=== PATIENT | male | born 1960 | race Caucasian/White ===

== ENCOUNTER 2017-05-10 06:39 | Emergency (ER) | payer OTHER ==
--- NOTE | 2017-05-10 07:11 | ED GENERAL ADULT ---
History of Present Illness General Chief Complaint: Low Back Pain/Injury Stated Complaint: LOW BACK PAIN Source: patient Exam Limitations: no limitations Vital Signs & Intake/Output Vital Signs & Intake/Output Vital Signs Date Time Temp Pulse Resp B/P B/P Pulse O2 O2 Flow FiO2 Mean Ox Delivery Rate 05/10 1804 97.1 77 19 132/71 96 Room Air 05/10 1406 97.0 75 20 135/66 95 Room Air 05/10 1307 97.2 78 18 128/77 95 Room Air 05/10 1203 99.0 75 14 122/88 94 Room Air 05/10 1105 97.2 70 16 132/68 98 Room Air 05/10 0819 97.2 74 20 118/66 96 Room Air 05/10 0650 96.9 78 18 102/52 98 Room Air Allergies Coded Allergies: NO KNOWN ALLERGIES (09/17/11) Reconcile Medications Cyclobenzaprine HCl 10 MG TABLET 1 TAB PO BID PRN PAIN Fluoxetine HCl 20 MG CAPSULE 1 CAP PO DAILY MENTAL HEALTH (Reported) Meloxicam (Mobic) 15 MG TABLET 1 TAB PO DAILY PRN PAIN Pravastatin Sodium 40 MG TABLET 1 TAB PO DAILY CHOLESTEROL (Reported) Triage Note: PT BIBA FROM HOME. PT STATES HE WAS FIXING A TOILET YESTERDAY AND BEGAN TO HAVE MILD LOW BACK PAIN. PT STATES UPON WAKING THIS AM HE WAS UNABLE TO STAND UP D/T HIS LOW BACK PAIN 01/07. Triage Nurses Notes Reviewed? yes Onset: Abrupt Duration: day(s): Timing: recent history HPI: 05/10/17 56-year-old man presents to the emergency department for low back pain. The patient was lifting some objects at work on Sunday, and developed low back pain aproximally 48 hours ago. He denies fever, abdominal pain, dysuria, urinary incontinence, bowel or bladder dysfunction. Past History Travel History Traveled to [place] past 21 day No Medical History Any Pertinent Medical History? see below for history Neurological: NONE EENT: NONE Cardiovascular: hyperlipidemia Respiratory: NONE Gastrointestinal: NONE Hepatic: NONE Renal: NONE Musculoskeletal: NONE Psychiatric: depression Endocrine: NONE Blood Disorders: NONE Cancer(s): NONE ALARM TECHNICIAN/Reproductive: NONE Tetanus Vaccine: 09/17/11 Surgical History Surgical History: non-contributory Psychosocial History What is your primary language Faroese Tobacco Use: Never used ETOH Use: occasional use Family History Hx Contributory? No Review of Systems Review of Systems Constitutional: Denies: fever. EENTM: Denies: visual changes. Respiratory: Denies: short of breath. Cardiovascular: Denies: chest pain. GI: Denies: abdominal pain. Genitourinary: Denies: discharge, dysuria. Musculoskeletal: Reports: back pain. Skin: Denies: rash. Neurological/Psychological: Denies: anxiety. Hematologic/Endocrine: Denies: bruising, bleeding. Immunologic/Allergic: Reports: no symptoms. Physical Exam Physical Exam General Appearance: well developed/nourished, alert, awake, anxious, mild distress Head: atraumatic, normal appearance Eyes: Bilateral: normal appearance, PERRL, EOMI. Ears, Nose, Throat: normal pharynx, normal ENT inspection Neck: normal inspection, supple, full range of motion Respiratory: normal breath sounds, chest non-tender, no respiratory distress Cardiovascular: regular rate/rhythm Peripheral Pulses: 4+ radial (R), 4+ radial (L) Gastrointestinal: soft, non-tender Back: normal inspection Extremities: normal inspection, normal range of motion Neurologic/Psych: no motor/sensory deficits, awake, alert, oriented x 3 Skin: intact, normal color, warm/dry Core Measures ACS in differential dx? No CVA/TIA Diagnosis: No Sepsis Present: No Sepsis Focused Exam Completed? No Progress Differential Diagnoses I considered the following diagnoses in my evaluation of the patient: Renal colic, lumbar strain, disc herniation, epidural abscess, transverse myelitis, cauda equina syndrome] Plan of Care: Orders Procedure Date/time Status BASIC METABOLIC PANEL 05/10 1748 Complete URINALYSIS 05/10 0737 Active Laboratory Tests 05/10/17 1753: Anion Gap 14, Estimated GFR > 60, BUN/Creatinine Ratio 22.2, Glucose 94, Calcium 9.2 Initial ED EKG: none Departure Departure Disposition: HOME OR SELF CARE Condition: Stable Clinical Impression Primary Impression: Back pain Referrals: Torie KENDRICK,Mayra Kaplan (PCP/Family) Departure Forms: Customer Survey General Discharge Information Prescriptions: Current Visit Scripts Meloxicam (Mobic) 1 TAB PO DAILY PRN PAIN #10 TAB Cyclobenzaprine HCl 1 TAB PO BID PRN PAIN #20 TAB Comments Plain film x-rays were unremarkable The patient had ongoing pain and was given Toradol and Flexeril. He had some improvement however he required IM Dilaudid His pain essentially resolved. He had difficulty providing a urine sample. He did admit to taking cold medications earlier, and was given the Dilaudid in the ED. CT scan was done which was negative as shown below. He was ambulating without difficulty. BMP showed normal renal function. He was told to take Flexeril as needed and follow-up with his doctor this week. PATIENT: CHENCHO LYNCH PRESENT AGE: 56 PATIENT ACCOUNT NO: [id number] : 62 LOCATION: [facility] ORDERING PHYSICIAN: Alvaro Acuna DO SERVICE DATE: 05/10/171874 EXAM TYPE: CAT - CT ABD & PELVIS W/O IV CONTRAS EXAMINATION: CT ABDOMEN AND PELVIS WITHOUT CONTRAST CLINICAL INFORMATION: Back pain. Rule out urolithiasis. COMPARISON: Lumbar spine dated 05/10/2017. TECHNIQUE: Multidetector volumetric imaging was performed from the superior aspect of the liver through the pubic symphysis. Sagittal and coronal reformatted images were obtained on the technologist workstation. DLP: 370.56 mGy-cm. FINDINGS: LUNG BASES: Mild dependent atelectatic changes as seen in both lower lobes. LIVER, GALLBLADDER, AND BILIARY TREE: The liver is normal in size, shape, and attenuation. No focal hepatic lesion on noncontrast imaging. No biliary ductal dilatation is present. The gallbladder is unremarkable with no evidence of radiopaque gallstones, gallbladder wall thickening, or obvious pericholecystic inflammatory changes. PANCREAS: Mild fatty infiltration of the pancreas is seen, most prominently affecting the pancreatic head. Pancreas otherwise unremarkable on noncontrast imaging. SPLEEN, ADRENAL GLANDS: Unremarkable on noncontrast imaging. KIDNEYS AND URETERS: The kidneys are normal in size, shape, and attenuation. No hydronephrosis, hydroureter, or calculi seen. No perinephric stranding. BLADDER: Unremarkable. PELVIC VISCERA: Unremarkable. GASTROINTESTINAL TRACT: The small and large bowel are unremarkable. The appendix is unremarkable. ABDOMINAL WALL: There is a small fat-containing umbilical hernia. LYMPH NODES, VASCULAR: No abdominal or pelvic adenopathy. Moderate atherosclerotic aortic calcifications. Aorta normal in caliber. OSSEOUS STRUCTURES: Minimal S-shaped thoracolumbar scoliosis is seen. IMPRESSION: 1. No acute intra-abdominal or pelvic process seen. Specifically, no evidence of nephrolithiasis or obstructive uropathy. 2. Mild fatty infiltration of the pancreas. 3. Small fat-containing umbilical hernia. DICTATED BY: Trice Cat MD DATE/TIME DICTATED:05/10/171602 CLEARING DISTRIBUTION CLERK:MELISA DATE/TIME TRANSCRIBED:05/10/171602 CONFIDENTIAL, DO NOT COPY WITHOUT APPROPRIATE AUTHORIZATION. <Electronically signed in Other Vendor System> SIGNED BY: Trice Cat MD. [id number] 05/10/17 Patient's pain is dramatically improved. He was sleepy from the Dilaudid. He is only voided small amounts. But CT scan was negative for evidence of hydronephrosis or ureterolithiasis. A BMP was sent. He is being discharged with Flexeril and will take ibuprofen as needed for pain [phone] Critical Care Note Critical Care Note Critical Care Time: non-applicable
[2017-05-10] MEDS ORDERED: FLUOXETINE HCL20 M2 PO (07:58)
[2017-05-10] MEDS ORDERED: PRAVASTATIN SOD40 M2 PO (07:59)
--- NOTE | 2017-05-10 08:40 | RADIOLOGY REPORT ---
EXAMINATION: XR LUMBOSACRAL SPINE CLINICAL INFORMATION: Back pain. COMPARISON: None TECHNIQUE: 3 views of the lumbosacral spine. FINDINGS: Minimal left convex curvature of the lumbar spine. Vertebral body height is maintained. Mild disc space narrowing at L3-L4. Small endplate osteophytes are visualized at T12-L1, L2-L3 and L3-L4 levels. Sacroiliac joints are unremarkable. No additional findings. IMPRESSION: Mild degenerative changes as above with mild disc space narrowing at L3-L4.
--- NOTE | 2017-05-10 16:15 | CT SCAN REPORT ---
EXAMINATION: CT ABDOMEN AND PELVIS WITHOUT CONTRAST CLINICAL INFORMATION: Back pain. Rule out urolithiasis. COMPARISON: Lumbar spine dated 05/10/2017. TECHNIQUE: Multidetector volumetric imaging was performed from the superior aspect of the liver through the pubic symphysis. Sagittal and coronal reformatted images were obtained on the technologist workstation. DLP: 370.56 mGy-cm. FINDINGS: LUNG BASES: Mild dependent atelectatic changes as seen in both lower lobes. LIVER, GALLBLADDER, AND BILIARY TREE: The liver is normal in size, shape, and attenuation. No focal hepatic lesion on noncontrast imaging. No biliary ductal dilatation is present. The gallbladder is unremarkable with no evidence of radiopaque gallstones, gallbladder wall thickening, or obvious pericholecystic inflammatory changes. PANCREAS: Mild fatty infiltration of the pancreas is seen, most prominently affecting the pancreatic head. Pancreas otherwise unremarkable on noncontrast imaging. SPLEEN, ADRENAL GLANDS: Unremarkable on noncontrast imaging. KIDNEYS AND URETERS: The kidneys are normal in size, shape, and attenuation. No hydronephrosis, hydroureter, or calculi seen. No perinephric stranding. BLADDER: Unremarkable. PELVIC VISCERA: Unremarkable. GASTROINTESTINAL TRACT: The small and large bowel are unremarkable. The appendix is unremarkable. ABDOMINAL WALL: There is a small fat-containing umbilical hernia. LYMPH NODES, VASCULAR: No abdominal or pelvic adenopathy. Moderate atherosclerotic aortic calcifications. Aorta normal in caliber. OSSEOUS STRUCTURES: Minimal S-shaped thoracolumbar scoliosis is seen. IMPRESSION: 1. No acute intra-abdominal or pelvic process seen. Specifically, no evidence of nephrolithiasis or obstructive uropathy. 2. Mild fatty infiltration of the pancreas. 3. Small fat-containing umbilical hernia.
[2017-05-10] MEDS ORDERED: MOBIC15 M1 PO (17:52)
[2017-05-10] MEDS ORDERED: CYCLOBENZAPRINE10 M1 PO (17:52)
[2017-05-10 18:04] VITALS: BP 132/71
== END 2017-05-10 18:05 ==
LOC: ERH 06:39
DX: M54.5 Low back pain (principal)
CPT/HCPCS: 72100; 74176; 96372; J1885